=== PATIENT | female | born 1960 | race Hispanic/Latino ===

== ENCOUNTER → 2017-03-06 | Day surgery (SDC) | payer MEDICARE, OTHER ==
[~2017-03-06] MED LIST: AMOXICILLIN500 M1 PO; BUTALB-ACETAMI1 EACH PO; DAILY VITAMIN1 EAC3 PO; DIVALPROEX SOD500 MG PO; FENTANYL CITRATE/PF 100MCG/2 ML INJ ONE; FIBER PO; GABAPENTIN300 MG PO; LEVOTHYROXINE75 MCG PO; LIDOCAINE HCL 2% LOCAL INJ 5 ML SDV VIAL INJ ONE; MIDAZOLAM HCL 2 MG/2 ML VIAL ONE; NAPROXEN250 MG PO; PANTOPRAZOLE SO40 MG PO; POTASSIUM CHLO10 ME1 PO; PROAIR HFA INH8.5 GM INH; PROMETHAZINE12.5 M1 PO; PROPOFOL IV EMULSION 10 MG/ML 50 ML VIAL ONE; STOOL SOFTENER100 M1 PO; TIZANIDINE HCL4 MG PO; ULTRAM50 MG PO; VESICARE10 MG PO
--- NOTE | 2017-03-06 15:48 | Operative Report ---
DATE OF PROCEDURE: March 06, 2017 REFERRING PHYSICIAN: Fito Crawford MD PROCEDURES PERFORMED 1. Esophagogastroduodenoscopy. 2. Flexible sigmoidoscopy. INDICATIONS FOR EGD: History of heartburn and indigestion. INDICATIONS FOR COLONOSCOPY: Colorectal cancer screening. MEDICATION: Patient was done under MAC. Please see anesthesiologist's note. PROCEDURE: With the patient in the left lateral decubitus position, the flexible fiberoptic Olympus gastroscope was introduced into the esophagus under direct visualization without any difficulty. There was some patchy erythema noted in the distal esophagus. A minute tongue of velvety red mucosa was noted to extend proximally from the GE junction, and that was biopsied to rule out Arriola's. The scope was then advanced with ease into the stomach. Mucosa overlying the antrum and the body revealed some patchy intense erythema and low-grade edema, and biopsies were obtained and sent to stain for H. pylori. The pylorus was of normal contour and shape. It was intubated with ease, and the scope was advanced all the way to the 2nd portion of the duodenum. The scope was then withdrawn slowly. Mucosa overlying the proximal 2nd portion and the duodenal bulb appeared to be within normal limits. The scope was then withdrawn back into the stomach and retroflexed. The mucosa overlying the fundus and the cardia appeared to be within normal limits. The scope was then straightened out. The stomach was decompressed. Scope was subsequently withdrawn. Patient tolerated the procedure well. IMPRESSION 1. Distal esophagitis. 2. Rule out Arriola's esophagus. 3. Gastritis, biopsied. Biopsy sent to stain for H. pylori. PLAN: Follow up histology. Continue Protonix 40 mg 1 p.o. q.a.m. a.c. The patient was then turned around. After adequate lubrication of the anal canal, a flexible fiberoptic Olympus colonoscope was inserted into the rectum with ease and advanced to approximately 40 cm from the anal verge. It could not be advanced any further secondary to presence of a large amount of retained stools. The scope was then withdrawn slowly. Whatever was visualized of the mucosa overlying the distal descending, sigmoid and rectum grossly appeared to be within normal limits. The scope was then retroflexed into the distal rectum. Small internal hemorrhoids were noted, none of which was actively bleeding. The scope was then straightened out. The rectosigmoid area as well as the distal rectal area were decompressed. Scope was subsequently withdrawn. Patient tolerated the procedure well. IMPRESSION 1. Flexible sigmoidoscopy to approximately 40 cm from the anal verge. Could not advance any further secondary to very poor prep. 2. Internal hemorrhoids, none actively bleeding. PLAN: Patient will need a followup colonoscopy after a better prep. Job#: [id number] cc:FITO CRAWFORD MD
== END | disposition home or self-care (01) ==
LOC: OR 11:32
PROVIDERS: ATTEND Internal Medicine Gastroenterology
DX: Z12.11 Encounter for screening for malignant neoplasm of colon (principal); K29.70 Gastritis, unspecified, without bleeding; K20.9 Esophagitis, unspecified; K59.00 Constipation, unspecified; K31.9 Disease of stomach and duodenum, unspecified; K21.9 Gastro-esophageal reflux disease without esophagitis; K62.5 Hemorrhage of anus and rectum; K64.8 Other hemorrhoids; J45.909 Unspecified asthma, uncomplicated; E66.01 Morbid (severe) obesity due to excess calories; E03.9 Hypothyroidism, unspecified; G89.4 Chronic pain syndrome; M19.90 Unspecified osteoarthritis, unspecified site; R03.0 Elevated blood-pressure reading, without diagnosis of hypertension; Z01.810 Encounter for preprocedural cardiovascular examination; Z68.37 Body mass index [BMI] 37.0-37.9, adult; Z85.6 Personal history of leukemia
CPT/HCPCS: 45330; 88305; 88312; 93005; J2001; J2250; 43239; 45378

== ENCOUNTER → 2017-05-10 | Emergency (ER) | payer MEDICARE, OTHER ==
[~2017-05-10] VITALS: Ht 144.8 cm; Wt 83.5 kg
[~2017-05-10] MED LIST changes: +ACETAMINOPHEN 325 MG TAB PO ONE; -FENTANYL CITRATE/PF 100MCG/2 ML INJ ONE; -LIDOCAINE HCL 2% LOCAL INJ 5 ML SDV VIAL INJ ONE; -MIDAZOLAM HCL 2 MG/2 ML VIAL ONE; -PROPOFOL IV EMULSION 10 MG/ML 50 ML VIAL ONE
--- NOTE | 2017-05-11 00:33 | Diagnostic Imaging Report ---
EXAM: CHEST 2 VIEWS, PA and lateral DATE: 05/11/2017 11:13 PM Time stamp on exam: 0005 hours INDICATION: Fever, chills, cough COMPARISON: None FINDINGS: LINES/TUBES: None LUNGS: No consolidations or edema. PLEURA: No effusions or pneumothorax. HEART AND MEDIASTINUM: Normal size and contour. BONES AND SOFT TISSUES: No acute findings. Round 1 cm calcification projects over the shoulder, possibly a joint body. IMPRESSION: No consolidative pneumonia. Signed by: Dr. Odalys Pettit M.D. on 05/11/2017 12:30 AM
[2017-05-11 01:21] VITALS: BP 125/92
== END | disposition home or self-care (01) ==
LOC: ER 22:33
DX: R50.9 Fever, unspecified (principal); R11.0 Nausea; B34.9 Viral infection, unspecified; I10 Essential (primary) hypertension; G40.909 Epilepsy, unspecified, not intractable, without status epilepticus
CPT/HCPCS: 87400

== ENCOUNTER 2017-05-23 23:38 | Emergency (ER) | payer MEDICARE, OTHER ==
[~2017-05-23] VITALS: Ht 144.8 cm; Wt 83.5 kg
[~2017-05-23 23:38] MED LIST changes: -ACETAMINOPHEN 325 MG TAB PO ONE
[2017-05-24] MEDS ORDERED: ACETAMINOPHEN 325 MG TAB PO ONE
[2017-05-24] MEDS ORDERED: ACETAMINOPHEN 325 MG TAB ONE (00:05)
--- NOTE | 2017-05-24 01:28 | Diagnostic Imaging Report ---
EXAMINATION: CHEST SINGLE (PORTABLE) INDICATION: Cough. COMPARISON: 05/11/2017 FINDINGS: TUBES and LINES: None. LUNGS: Lungs are well inflated. Stable left upper lobe granulomas. There is no evidence of pneumonia or pulmonary edema. PLEURA: No pleural effusion or pneumothorax. HEART AND MEDIASTINUM: The cardiomediastinal silhouette is unremarkable. BONES AND SOFT TISSUES: No acute osseous lesion. Soft tissues are unremarkable. UPPER ABDOMEN: No free air under the diaphragm. IMPRESSION: No acute thoracic abnormality. Signed by: Dr. Heber Haile M.D. on 05/24/2017 1:24 AM
== END 2017-05-24 05:19 | disposition short-term general hospital (02) ==
LOC: ER 23:38
DX: R05 Cough (principal)
CPT/HCPCS: 71010; 87400; 93005

== ENCOUNTER 2020-06-11 15:39 | Emergency (ER) | payer MEDICARE, OTHER ==
[~2020-06-11] VITALS: Ht 144.8 cm; Wt 77.3 kg
[2020-06-11] MEDS ORDERED: IBUPROFEN 400 MG TAB PO ONE (16:00)
[2020-06-11] MEDS ORDERED: ALBUTEROL/IPRATROPIUM 3 ML NEB NEB ONE (16:00)
[2020-06-11] MEDS ORDERED: IBUPROFEN 400 MG TAB ONE (16:18)
[2020-06-11] MEDS ORDERED: ALBUTEROL/IPRATROPIUM 3 ML NEB ONE (16:20)
[2020-06-11] MEDS ORDERED: NAPROSYN500 MG PO ×2 (17:38→17:45)
[2020-06-11] MEDS ORDERED: CEFDINIR300 MG PO ×2 (17:38→17:45)
[2020-06-11] MEDS ORDERED: CORTISPORIN-TC10 M1 RIGHT EAR (17:38)
[2020-06-11] MEDS ORDERED: CORTISPORIN-TC10 M1 LEFT EAR (17:45)
[2020-06-11 18:11] VITALS: BP 105/67
== END 2020-06-11 18:12 | disposition home or self-care (01) ==
LOC: FSED 15:57
DX: J18.9 Pneumonia, unspecified organism (principal); R05 Cough; R09.1 Pleurisy; H66.91 Otitis media, unspecified, right ear; I10 Essential (primary) hypertension; E03.9 Hypothyroidism, unspecified; G40.909 Epilepsy, unspecified, not intractable, without status epilepticus; K21.9 Gastro-esophageal reflux disease without esophagitis; D64.9 Anemia, unspecified; Z85.6 Personal history of leukemia
CPT/HCPCS: 71045; 99283

== ENCOUNTER 2021-04-11 23:05 | Emergency (ER) | payer MEDICARE, OTHER ==
[~2021-04-11] VITALS: Ht 144.8 cm; Wt 77.1 kg
[~2021-04-11 23:05] MED LIST changes: +CEFDINIR300 MG PO; +CORTISPORIN-TC10 M1 LEFT EAR; +CORTISPORIN-TC10 M1 RIGHT EAR; +NAPROSYN500 MG PO
[2021-04-11 23:34] LABS: BASOPHILS # (AUTO) 0.1 (0.0-0.1); BASOPHILS % 0.9 % (0.0-1.0); EOSINOPHILS # (AUTO) 0.1 (0.0-0.4); EOSINOPHILS % 1.2 % (0.0-6.0); HEMATOCRIT 29.2 % (34.2-44.1); HEMOGLOBIN 9.6 g/dL (12.0-16.0); LYMPHOCYTES # (AUTO) 2.3 (1.0-3.2); LYMPHOCYTES % 35.7 % (18.0-39.1); MEAN CORPUSCULAR HEMOGLOBIN 32.7 pg (28-32); MEAN CORPUSCULAR HGB CONC 32.9 g/dL (31-35); MEAN CORPUSCULAR VOLUME 99.3 fL (81-99); MONOCYTES # (AUTO) 0.7 (0.2-0.8); MONOCYTES % 10.9 % (4.4-11.3); NEUTROPHILS # (AUTO) 3.3 (2.1-6.9); NEUTROPHILS % 50.8 % (38.7-80.0); PLATELET COUNT 214 x10e3/uL (140-360); RED BLOOD COUNT 2.94 x10e6/uL (3.6-5.1); RED CELL DISTRIBUTION WIDTH 14.3 % (11.7-14.4)
[2021-04-11 23:44] LABS: CLARITY,URINE CLEAR (CLEAR); COLOR,URINE YELLOW (YELLOW); KETONES,URINE NEGATIVE (NEGATIVE); LEUKOCYTE ESTERASE ,URINE NEGATIVE (NEGATIVE); NITRITE,URINE NEGATIVE (NEGATIVE); PROTEIN,URINE DIPSTICK NEGATIVE (NEGATIVE); URINE UROBILINOGEN 0.2 mg/dL (0.2 - 1)
[2021-04-11] MEDS ORDERED: SODIUM CHLORIDE 0.9% 1000ML 1,000 ML IV ONE (23:45)
[2021-04-11 23:51] LABS: AMORPHOUS SEDIMENT,URINE FEW (FEW); BACTERIA,URINE FEW /HPF; EPITHELIAL CELLS,URINE MODERATE /LPF; RBC,URINE 0-5 /HPF (0-5); WBC,URINE (MAN) 0-5 /HPF (0-5)
[2021-04-11 23:52] LABS: AMYLASE 60 U/L (25-125); LIPASE 33 U/L (8-78)
[2021-04-11 23:55] LABS: ALBUMIN 3.6 g/dL (3.5-5.0); ANION GAP 15.9 mmol/L (8-16); CALCIUM 8.6 mg/dL (8.4-10.2); CREATININE, SERUM 1.27 mg/dL (0.57-1.11); POTASSIUM 3.9 mmol/L (3.5-5.1)
[2021-04-12 00:01] LABS: CREATINE KINASE MB 0.6 ng/mL (0-5.0)
[2021-04-12 02:30] VITALS: BP 106/79
== END 2021-04-12 02:30 | disposition home or self-care (01) ==
LOC: ER 23:15
DX: R10.11 Right upper quadrant pain (principal); I10 Essential (primary) hypertension; E03.9 Hypothyroidism, unspecified; J45.909 Unspecified asthma, uncomplicated; G40.909 Epilepsy, unspecified, not intractable, without status epilepticus; K21.9 Gastro-esophageal reflux disease without esophagitis; D64.9 Anemia, unspecified; M54.9 Dorsalgia, unspecified; G89.29 Other chronic pain; Z85.89 Personal history of malignant neoplasm of other organs and systems
CPT/HCPCS: 36415; 71045; 76705; 80053; 81001; 82150; 82550; 82553; 83690; 84484; 85025; 93005; 99283; J7030

== ENCOUNTER 2021-05-09 15:54 | Emergency (ER) | payer MEDICARE, OTHER ==
[~2021-05-09] VITALS: Ht 144.8 cm; Wt 77.1 kg
[2021-05-09 17:20] LABS: BASOPHILS % 0.8 % (0.0-1.0); EOSINOPHILS # (AUTO) 0.2 (0.0-0.4); EOSINOPHILS % 3.4 % (0.0-6.0); HEMATOCRIT 28.7 % (34.2-44.1); HEMOGLOBIN 9.1 g/dL (12.0-16.0); LYMPHOCYTES # (AUTO) 2.2 (1.0-3.2); LYMPHOCYTES % 46.1 % (18.0-39.1); MEAN CORPUSCULAR HEMOGLOBIN 32.2 pg (28-32); MEAN CORPUSCULAR HGB CONC 31.7 g/dL (31-35); MEAN CORPUSCULAR VOLUME 101.4 fL (81-99); MONOCYTES # (AUTO) 0.6 (0.2-0.8); MONOCYTES % 13.2 % (4.4-11.3); NEUTROPHILS # (AUTO) 1.7 (2.1-6.9); NEUTROPHILS % 35.9 % (38.7-80.0); PLATELET COUNT 186 x10e3/uL (140-360); RED BLOOD COUNT 2.83 x10e6/uL (3.6-5.1); RED CELL DISTRIBUTION WIDTH 14.6 % (11.7-14.4)
[2021-05-09 17:39] LABS: ALBUMIN/GLOBULIN RATIO 1.2 (0.8-2.0); ANION GAP 18.6 mmol/L (8-16); CALCIUM 8.1 mg/dL (8.4-10.2); CREATININE, SERUM 2.8 mg/dL (0.57-1.11); POTASSIUM 4.6 mmol/L (3.5-5.1)
[2021-05-09 17:50] LABS: CREATINE KINASE MB 1.7 ng/mL (0-5.0)
[2021-05-09] MEDS ORDERED: SODIUM CHLORIDE 0.9% 1000ML 1,000 ML IV SCH (19:15)
[2021-05-09 19:43] VITALS: BP 132/76
== END 2021-05-09 19:52 | disposition home or self-care (01) ==
LOC: ER 16:30
DX: R09.1 Pleurisy (principal); E86.0 Dehydration; G40.909 Epilepsy, unspecified, not intractable, without status epilepticus; I10 Essential (primary) hypertension; J45.909 Unspecified asthma, uncomplicated; E03.9 Hypothyroidism, unspecified; Z88.6 Allergy status to analgesic agent; Z91.040 Latex allergy status; Z91.048 Other nonmedicinal substance allergy status; Z79.899 Other long term (current) drug therapy; Z86.2 Personal history of diseases of the blood and blood-forming organs and certain disorders involving the immune mechanism
CPT/HCPCS: 36415; 70450; 71045; 80053; 82550; 82553; 83735; 84484; 85025; 93005; 99284